=== PATIENT | female | born 1960 | race Caucasian/White ===

== ENCOUNTER 2023-03-11 20:44 | Emergency (ER) | payer SELFPAY ==
[2023-03-11 21:25] LABS: Bilirubin Negative (Negative); Blood, Urine Moderate (Negative); Clarity Slightly Cloudy (Clear); Glucose, Urine (Dipstick) Negative (Negative); Ketone, Urine Negative (Negative); Leukocyte Large (Negative); Nitrite Positive (Negative); Protein, Urine (Dipstick) 100 mg/dL (Neg-Trace); Urobilinogen 0.2 mg/dL (Less than 2)
[2023-03-11 21:31] LABS: Bacteria/HPF 2+ HPF (None Seen); CAUTI Indications for Culture Dysuria,urgency,freq; Specific Gravity, Urine 1.025 (1.002-1.036); WBC/HPF Greater than 50 HPF (0-3)
[2023-03-11 21:32] LABS: Urine Culture Reflex Yes Yes
[2023-03-11] MEDS ORDERED: Cephalexin 250 MG CAP ONE (21:47)
== END 2023-03-11 22:13 | disposition home or self-care (01) ==
LOC: NAV ERS 20:44
DX: N39.0 Urinary tract infection, site not specified (principal); N76.2 Acute vulvitis; I10 Essential (primary) hypertension; F17.210 Nicotine dependence, cigarettes, uncomplicated
CPT/HCPCS: 81001; 87077; 87086; 87186; 99283

== ENCOUNTER 2025-06-20 17:27 | Emergency (ER) | payer MEDICARE, SELFPAY ==
[2025-06-20 18:42] LABS: #Basophils 0.3 thou/uL (0.0-0.2); #Eosinophils 0.2 thou/uL (0.0-0.7); #Lymphocytes 3.3 thou/uL (1.20-3.40); #Monocytes 0.8 thou/uL (0.11-0.59); #Neutrophils 7.7 thou/uL (1.40-6.50); %Basophils 2.2 % (0.0-1.0); %Eosinophils 2.0 % (0.0-10.0); %Lymphocytes 26.6 % (21.0-51.0); %Monocytes 6.6 % (0.0-10.0); %Neutrophils 62.6 % (42.0-75.0); Hematocrit 45.9 % (36.0-47.0); Hemoglobin 15.5 g/dL (12.0-16.0); Mean Corpuscular Hemoglobin 30.3 pg (27.0-31.0); Mean Corpuscular Volume 89.8 fl (78.0-98.0); Platelet Count 378 10x3/uL (130-400); Red Blood Cell (RBC) Count 5.11 mill/uL (4.20-5.40); White Blood Cell (WBC) Count 12.3 10x3/uL (4.8-10.8)
[2025-06-20 18:54] LABS: Acetaminophen Less than 10 mcg/mL (Less than 10); Salicylate Less than 8.0 mg/dL (Less than 8.0)
[2025-06-20 18:56] LABS: ALT (SGPT) 12 U/L (Less than 34); AST (SGOT) 20 U/L (11-34); Albumin 4.2 g/dL (3.1-4.5); Alkaline Phosphatase 104 U/L (40-110); Anion Gap 18 mmol/L (10-20); BUN (Urea Nitrogen) 15 mg/dL (9.8-20.1); Bilirubin, Total 0.5 mg/dL (0.3-1.2); Calc. Creatinine Clearance 0 mL/min (70-130); Calcium 9.2 mg/dL (7.8-10.44); Carbon Dioxide 23 mmol/L (23-31); Chloride 103 mmol/L (98-107); Globulin 3.7 g/dL (2.4-3.5); Glucose 100 mg/dL (80-115); Potassium 3.7 mmol/L (3.5-5.1); Sodium 140 mmol/L (136-145)
[2025-06-20] MEDS ORDERED: Acetaminophen 325 MG TAB ONE (19:15)
[2025-06-20 20:30] LABS: Glucose, Urine (Dipstick) Negative (Negative); Leukocyte Small (Negative); Protein, Urine (Dipstick) 30 mg/dL (Neg-Trace); Specific Gravity, Urine 1.020 (1.005-1.030)
[2025-06-20 20:39] LABS: Cocaine Metabolite Screen Negative (Negative); THC/Cannabinoid Screen PRELIM POSITIVE (Negative); Tricyclic Screen Negative (Negative)
[2025-06-20 20:40] LABS: Bacteria/HPF 4+ HPF (None Seen); CAUTI Indications for Culture Fever or rigors; RBC/HPF 0-3 HPF (0-3); WBC/HPF Greater than 50 HPF (0-3)
[2025-06-20 20:41] LABS: Yeast-Budding Rare HPF (None Seen)
[2025-06-20 20:42] LABS: Urine Culture Reflex Yes Yes
[2025-06-20] MEDS ORDERED: Sulfameth/Trimethoprim DS 800-160mg TAB ONE (20:50)
== END 2025-06-20 22:54 | disposition home or self-care (01) ==
LOC: NAV ERS 17:27
DX: F32.A Depression, unspecified (principal); N30.00 Acute cystitis without hematuria; I10 Essential (primary) hypertension; F17.210 Nicotine dependence, cigarettes, uncomplicated
CPT/HCPCS: 36415; 80053; 80306; 80307; 81001; 84443; 85025; 87086; 87186; 99284